=== PATIENT | male | born 1980 | race Two or more races ===

== ENCOUNTER → 2020-07-22 | Outpatient (CLI) | payer OTHER ==
[2020-07-22 21:12] LABS: VANC TR 5.6 mcg/mL (10.0-20.0)
== END ==
LOC: EEVIPCON 20:32 → LAB 20:32
DX: L02.31 Cutaneous abscess of buttock (principal)
CPT/HCPCS: 36415; 80202

== ENCOUNTER 2020-10-24 19:23 | Emergency (ER) | payer OTHER ==
[~2020-10-24] VITALS: Ht 172.7 cm; Wt 79.5 kg
[2020-10-24] MEDS ORDERED: ONDANSETRON ODT 4 MG TAB.RAPDIS PO ONE (19:45)
[2020-10-24] MEDS ORDERED: KETOROLAC 60 MG/2 ML VIAL. IM ONE (19:45)
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
--- NOTE | 2020-10-24 20:11 | RAD ---
INDICATION: Reason: head pain, trauma to posterior head / Spl. Instructions: / History: COMPARISON: None. TECHNIQUE: Axial CT images obtained through the head without intravenous contrast. One or more of the following individualized dose reduction techniques were utilized for this examinat ion: 1. Automated exposure control; 2. Adjustment of the mA and/or kV according to patient size; 3 . Use of iterative reconstruction technique. FINDINGS: No intracranial hemorrhage. No midline shift. Basal cisterns patent. Ventricles and sulci are unremarkable. No acute osseous abnormality. Orbits and paranasal sinuses unremarkable. There is debris in the right external auditory canal. Subcutaneous soft tissue swelling of the scalp posteriorly IMPRESSION: * No definite acute intracranial hemorrhage. Electronically signed by: Paramjit Baker MD (10/24/2020 8:08 PM) [id number]
--- NOTE | 2020-10-24 21:17 | EKG ---
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
[2020-10-24 22:15] VITALS: BP 123/71
== END 2020-10-24 22:30 | disposition home or self-care (01) ==
LOC: ER 19:23 → EEVIPCON 19:23 → ER 22:30
DX: S06.0X1A Concussion with loss of consciousness of 30 minutes or less, initial encounter (principal); S00.03XA Contusion of scalp, initial encounter; R11.2 Nausea with vomiting, unspecified; F20.9 Schizophrenia, unspecified; W22.8XXA Striking against or struck by other objects, initial encounter; Y93.89 Activity, other specified; Y92.89 Other specified places as the place of occurrence of the external cause; Y99.8 Other external cause status
CPT/HCPCS: 70450; 93005; 96372; 99284; J1885; Q0162; 99285-25

== ENCOUNTER 2021-02-03 16:08 | Emergency (ER) | payer OTHER ==
[~2021-02-03] VITALS: Ht 172.7 cm; Wt 81.0 kg
[2021-02-03 16:20] VITALS: BP 109/64
[2021-02-03] MEDS ORDERED: LIDOCAINE 1%/EPI 1:100,000 20 ML VIAL. IJ ONE (17:00)
[2021-02-03] MEDS ORDERED: DIPH,PERTUSS(ACELL),TET VAC/PF 0.5 ML SYRINGE. VAX IM ONE (17:00)
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
== END 2021-02-03 18:38 | disposition home or self-care (01) ==
LOC: ER 16:08
DX: S41.111A Laceration without foreign body of right upper arm, initial encounter (principal); F20.9 Schizophrenia, unspecified; Z88.8 Allergy status to other drugs, medicaments and biological substances; Z88.1 Allergy status to other antibiotic agents; Y28.8XXA Contact with other sharp object, undetermined intent, initial encounter; Y93.89 Activity, other specified; Y92.89 Other specified places as the place of occurrence of the external cause; Y99.8 Other external cause status
CPT/HCPCS: 12002; 90471; 90715; 99283

== ENCOUNTER 2021-11-28 19:14 | Emergency (ER) | payer OTHER ==
[~2021-11-28] VITALS: Ht 172.7 cm; Wt 83.4 kg
[2021-11-28 19:32] VITALS: BP 116/72
[2021-11-28] MEDS ORDERED: LIDOCAINE 2%/EPI 1:100,000 20 ML VIAL. IJ ONE (19:45)
[2021-11-28] MEDS ORDERED: CEPH500C PO (20:09)
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
[2021-11-28] MEDS ORDERED: DIPHTH,PERTUSS(ACELL),TET TOX 0.5 ML DISP.SYRIN. VAX IM ONE (20:15)
[2021-11-28] MEDS ORDERED: BACITRACIN ZINC TOPICAL OINT PACKET. TP ONE (20:15)
== END 2021-11-28 20:31 | disposition home or self-care (01) ==
LOC: EEVIPCON 19:14 → MERGE 19:14 → EDBD 19:14 → ER 19:14
DX: S61.411A Laceration without foreign body of right hand, initial encounter (principal); Z88.8 Allergy status to other drugs, medicaments and biological substances; Z88.1 Allergy status to other antibiotic agents; W27.8XXA Contact with other nonpowered hand tool, initial encounter; Y93.89 Activity, other specified; Y92.89 Other specified places as the place of occurrence of the external cause; Y99.8 Other external cause status
CPT/HCPCS: 12001; 90471; 90715; 99283